=== PATIENT | female | born 1935 | race American Indian/Alaskan Native ===

== ENCOUNTER 2021-08-30 03:40 | Observation (INO) | payer MEDICARE ==
--- NOTE | 2021-08-30 05:52 | Emergency Department Report ---
ED Shortness of Breath HPI - General Chief Complaint: Dyspnea/Respdistress Stated Complaint: CHEST PAIN, SOB Time Seen by Provider: 08/30/21 05:43 Source: EMS Mode of arrival: Stretcher Limitations: No Limitations - History of Present Illness Initial Comments: 86-year-old female with a history of irregular heartbeat status post pacemaker brought in by EMS with chest pain that started last night progressively getting worse. Patient was given 324 baby aspirin and albuterol breathing treatment with complete resolution of pain. Patient described the pain as pressure in the middle of her chest. No fever or chills reported. No cough or palpitation n oted. Patient denies any other modifying or associated factors. - Related Data Allergies Allergy/AdvReac Type Severity Reaction Status Date / Time No Known Allergies Allergy Verified 08/30/21 04:58 ED Review of Systems ROS: Stated complaint: CHEST PAIN, SOB Other details as noted in HPI Comment: All other systems reviewed and negative Cardiovascular: chest pain. denies: palpitations, dyspnea on exertion ED Past Medical Hx - Surgical History Hx Pacemaker: Yes (Ventricular Paced) ED Physical Exam - General Limitations: No Limitations General appearance: alert, in no apparent distress - Head Head exam: Present: normal inspection - Eye Eye exam: Present: normal appearance Pupils: Present: normal accommodation - ENT ENT exam: Present: normal exam, normal orophraynx, mucous membranes moist - Neck Neck exam: Present: normal inspection. Absent: tenderness, meningismus - Respiratory Respiratory exam: Present: normal lung sounds bilaterally. Absent: respiratory distress, accessory muscle use - Cardiovascular Cardiovascular Exam: Present: regular rate, normal rhythm, normal heart sounds - GI/Abdominal GI/Abdominal exam: Present: soft, normal bowel sounds. Absent: distended, tenderness - Extremities Exam Extremities exam: Present: normal inspection, normal capillary refill. Absent: tenderness - Back Exam Back exam: Absent: tenderness - Neurological Exam Neurological exam: Present: alert, oriented X3 - Psychiatric Psychiatric exam: Present: normal affect, normal mood ED Course Vital Signs 08/30/21 08/30/21 08/30/21 03:41 06:31 06:45 Temperature 97.1 F L Pulse Rate 89 89 78 Respiratory 18 14 15 Rate Blood Pressure 158/86 158/86 Blood Pressure 148/86 [Right] O2 Sat by Pulse 99 100 100 Oximetry 08/30/21 08/30/21 08/30/21 07:01 07:53 08:01 Temperature Pulse Rate 89 Respiratory 12 Rate Blood Pressure 158/86 150/85 150/85 Blood Pressure [Right] O2 Sat by Pulse 100 99 100 Oximetry 08/30/21 08/30/21 08/30/21 08:15 08:17 08:31 Temperature Pulse Rate Respiratory Rate Blood Pressure 150/85 150/85 Blood Pressure [Right] O2 Sat by Pulse 100 96 100 Oximetry 08/30/21 08/30/21 08/30/21 08:55 08:59 09:01 Temperature Pulse Rate Respiratory Rate Blood Pressure 150/85 150/85 Blood Pressure [Right] O2 Sat by Pulse 83 L 96 100 Oximetry 08/30/21 08/30/21 09:21 09:31 Temperature Pulse Rate Respiratory Rate Blood Pressure 150/85 150/85 Blood Pressure [Right] O2 Sat by Pulse 97 100 Oximetry - Reevaluation(s) Reevaluation #1: 08/30/21 05:48 Here with chest pain and shortness of breath with history of cardiac arrhythmia s/p pacemaker--chest pain is relieved by 224 mg of baby aspirin, and albuterol breathing treatments--with this patient comorbidity there is concern for cardiac--so we will go ahead and rule out WA with initial troponin, EKG, BNP, and routine CBC, CMP and UA for infectious process or electrolyte abnormality. Initial EKG shows AV dual paced rhythm with some he patient heart rate of 75 bpm. 08/30/21 05:50 Reevaluation #2: 08/30/21 05:[address] Sharp at shift change while waiting for the above workup including initial troponin 08/30/21 05:52 ED Medical Decision Making - Lab Data Result diagrams: 08/30/21 05:55 08/30/21 05:55 Critical care attestation.: If time is entered above; I have spent that time in minutes in the direct care of this critically ill patient, excluding procedure time. ED Disposition Clinical Impression: Chest pain Qualifiers: Chest pain type: unspecified Qualified Code(s): R07.9 - Chest pain, unspecified Disposition: 09 ADMITTED INPATIENT Is pt being admited?: Yes Does the pt Need Aspirin: No Condition: Stable
[2021-08-30 06:08] LABS: Basophils % (Auto) 0.4 % (0.0-1.8); Eosinophils % (Auto) 0.6 % (0.0-4.3); Hematocrit 34.2 % (30.3-42.9); Hemoglobin 11.5 gm/dl (10.1-14.3); Lymphocytes # (Auto) 0.9 K/mm3 (1.2-5.4); Lymphocytes % (Auto) 18.9 % (13.4-35.0); Mean Corpuscular HGB Conc 34 % (30-34); Mean Corpuscular Volume 93 fl (79-97); Monocytes # (Auto) 0.4 K/mm3 (0.0-0.8); Monocytes % (Auto) 9.2 % (0.0-7.3); Platelet Count 210 K/mm3 (140-440); Red Blood Count 3.68 M/mm3 (3.65-5.03); Red Cell Distribution Width 14.4 % (13.2-15.2)
--- NOTE | 2021-08-30 06:11 | XRay Report ---
CHEST 1 VIEW 08/30/2021 5:04 AM INDICATION / CLINICAL INFORMATION: chest pain. COMPARISON: None available. FINDINGS: SUPPORT DEVICES: Left chest wall dual lead cardiac pacemaker HEART / MEDIASTINUM: Cardiomegaly LUNGS / PLEURA: Pulmonary vascular indistinctness No pneumothorax. ADDITIONAL FINDINGS: No significant additional findings. IMPRESSION: 1. Cardiomegaly with pulmonary edema. Signer Name: Amandeep Vivar DO Signed: 08/30/2021 6:07 AM Workstation Name: [id number]
[2021-08-30 06:18] LABS: INR 1.02 (0.87-1.13); Partial Thromboplastin Time 31.5 Sec. (24.2-36.6)
[2021-08-30 06:21] LABS: Alanine Aminotransferase 90 units/L (7-56); Albumin 3.9 g/dL (3.9-5); BUN/Creatinine Ratio 17; Blood Urea Nitrogen 19 mg/dL (7-17); Hemolysis Index 6
[2021-08-30] MEDS ORDERED: ASPIRIN 81 MG TAB CHEW PO ONE (07:37)
[2021-08-30] MEDS ORDERED: NITROGLYCERIN 0.4 MG TAB SUBL SL ONE (07:37)
--- NOTE | 2021-08-30 07:40 | Event Note ---
Date: 08/30/21 (Addendum) Patient care transferred to nd from Dr. Nascimento @ 6:00 am. Patient here with complaints of CP and SOB. ED Medical Decision Making - Lab Data Result diagrams: 08/30/21 05:55 08/30/21 05:55 Laboratory Tests 08/30/21 08/30/21 08/30/21 05:55 05:55 05:55 WBC 4.6 RBC 3.68 Hgb 11.5 Hct 34.2 MCV 93 MCH 31 MCHC 34 RDW 14.4 Plt Count 210 Lymph % (Auto) 18.9 [place] % (Auto) 9.2 H Eos % (Auto) 0.6 Baso % (Auto) 0.4 Lymph # (Auto) 0.9 L [place] # (Auto) 0.4 Eos # (Auto) 0.0 Baso # (Auto) 0.0 Seg Neutrophils % 70.9 H Seg Neutrophils # 3.3 PT INR APTT Sodium 138 Potassium 4.4 Chloride 103.3 Carbon Dioxide 24 Anion Gap 15 BUN 19 H Creatinine 1.1 Estimated GFR 57 BUN/Creatinine Ratio 17 Glucose 113 H Calcium 9.0 Total Bilirubin 0.70 AST 180 H ALT 90 H Alkaline Phosphatase 108 Troponin T < 0.010 NT-Pro-B Natriuret Pep Total Protein 6.7 Albumin 3.9 Albumin/Globulin Ratio 1.4 TSH 0.474 08/30/21 08/30/21 05:55 05:55 WBC RBC Hgb Hct MCV MCH MCHC RDW Plt Count Lymph % (Auto) [place] % (Auto) Eos % (Auto) Baso % (Auto) Lymph # (Auto) [place] # (Auto) Eos # (Auto) Baso # (Auto) Seg Neutrophils % Seg Neutrophils # PT 14.5 INR 1.02 APTT 31.5 Sodium Potassium Chloride Carbon Dioxide Anion Gap BUN Creatinine Estimated GFR BUN/Creatinine Ratio Glucose Calcium Total Bilirubin AST ALT Alkaline Phosphatase Troponin T NT-Pro-B Natriuret Pep 5490 H Total Protein Albumin Albumin/Globulin Ratio TSH CXR: cardiomegaly with bilateral infiltrates EKG: HR 72, A-V paced, no significant St changes in contiguous leads by Sgarbossa criteria - Medical Decision Making Diff dz: likely 2/2 CHF exacerbation. Need to r/o ACS. Pneumothorax ruled out. PE, pneumonia less likely. IMPRESSION: 1. CHF exacerbation 2. Chest pain ED Disposition Disposition: 09 ADMITTED INPATIENT Is pt being admited?: Yes Does the pt Need Aspirin: No Condition: Stable Time of Disposition: 07:43 (Patient admitted tyo Dr. Centeno. Sign out was given by me to Dr. Starr (covering for Dr. Centeno))
[2021-08-30] MEDS: FUROSEMIDE 40 MG/4 ML INJ IV ONE ×2 (07:56→09:00)
[2021-08-30] MEDS ORDERED: NALOXONE 0.4 MG/1 ML INJ IV PRN (08:00)
[2021-08-30] MEDS ORDERED: MORPHINE 2 MG/1 ML INJ IV PRN (08:00)
[2021-08-30] MEDS ORDERED: ACETAMINOPHEN 325 MG TAB PO PRN (08:00)
[2021-08-30] MEDS ORDERED: ALBUTEROL 2.5 MG/3 ML NEBU IH PRN (08:00)
[2021-08-30] MEDS ORDERED: ONDANSETRON 4 MG/2 ML INJ IV PRN (08:00)
[2021-08-30] MEDS ORDERED: NITROGLYCERIN 0.4 MG TAB SUBL SL PRN (08:00)
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
[2021-08-30] MEDS ORDERED: FAMOTIDINE 20 MG TAB PO SCH (10:00)
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
[2021-08-30] MEDS: HEPARIN 5,000 UNIT/1 ML VIAL SUB-Q SCH ×3 (13:48→21:52)
[2021-08-30] MEDS: METOPROLOL SUCCINATE XL 25 MG TAB PO SCH (13:48)
[2021-08-30] MEDS: FAMOTIDINE 10 MG TAB PO SCH ×2 (13:55→21:52)
[2021-08-30] MEDS: LISINOPRIL 5 MG TAB PO SCH (13:56)
[2021-08-30 14:58] LABS: Creatine Kinase MB 4.6 ng/mL (0.0-4.0)
[2021-08-30 16:02] LABS: Bilirubin,Urine NEG (Negative); Blood,Urine SM (Negative); Color,Urine Colorless (Yellow); Protein,Urine <15 mg/dL mg/dL (Negative); RBC,Urine < 1.0 /HPF (0.0-6.0); Urobilinogen,Urine < 2.0 mg/dL (<2.0); WBC,Urine < 1.0 /HPF (0.0-6.0)
[2021-08-30] MEDS: FUROSEMIDE 20 MG/2 ML INJ IV SCH (18:38)
[2021-08-30 19:42] LABS: Creatine Kinase MB 4.4 ng/mL (0.0-4.0)
[2021-08-30] MEDS: DOCUSATE SODIUM 100 MG CAP PO PRN (21:52)
[2021-08-31 04:58] LABS: Hemoglobin 11.3 gm/dl (10.1-14.3); Mean Corpuscular HGB Conc 34 % (30-34); Mean Corpuscular Volume 91 fl (79-97); Platelet Count 215 K/mm3 (140-440); Red Blood Count 3.63 M/mm3 (3.65-5.03); Red Cell Distribution Width 14.4 % (13.2-15.2)
[2021-08-31 05:27] LABS: Albumin 3.8 g/dL (3.9-5); Calcium 8.7 mg/dL (8.4-10.2); Chol/HDL Ratio 2.61 %
[2021-08-31] MEDS: HEPARIN 5,000 UNIT/1 ML VIAL SUB-Q SCH (05:41)
[2021-08-31] MEDS: FUROSEMIDE 20 MG/2 ML INJ IV SCH (05:41)
[2021-08-31 08:40] VITALS: BP 129/79
[2021-08-31] MEDS ORDERED: POTASSIUM CHLORIDE ER 20 MEQ TAB PO SCH (10:00)
[2021-08-31] MEDS ORDERED: ASPIRIN 325 MG TAB PO SCH (10:00)
--- NOTE | 2021-08-31 11:03 | Discharge Summary ---
Providers - Providers Date of Admission: 08/30/21 07:52 Attending physician: ALEXANDRIA GUTIERREZ MD 08/30/21 07:53 Consult to Dietitian/Nutrition [CONS] Routine Physician Instructions: Reason For Exam: Reason for Consult: Diet education 08/30/21 08:15 Consult to Physician [CONS] Routine Comment: Consulting Provider: AVA MURILLO Physician Instructions: Reason For Exam: CHF Primary care physician: CRYPTOLOGIC TECHNICIAN OPERATOR/ANALYST Hospitalization Reason for admission: Shortness of breath Condition: Stable Hospital course: Patient is an 86-year-old female with past medical history of hypotension, postural dizziness, question recent diagnosis of irregular heartbeat status post pacemaker a few weeks ago was presented to the ED for complaint of shortness of breath and chest pain that started the night prior to admission and worsening. She was given 324 mg of aspirin in the ED with complete resolution of the pain and also albuterol for her breathing. She denies history of tobacco use alcohol reports that she does have compliance with all her medications. She has been tried on multiple medications and of recent was taken off amlodipine and lisinopril at some point it appears that she was on fludrocortisone and also on colchicine for unknown reasons at this time. She denies any history of gout. At the time of my examination she says her symptoms are improving although she reports that she had not received the Lasix that was ordered. Chest x-ray in the ED showed her congestive heart failure with pulmonary edema. Chest x-ray in the ED shows pulmonary edema EKG shows AV dual paced rhythm Echocardiogram 06/17/2021- Left ventricular ejection fraction is 45%.2. The estimated right ventricular systolic pressure is normal at 26.0 mmHg.3. Aortic valve is sclerotic, focally calcified and tricuspid.4. Small pericardial effusion.5. Mild-moderate tricuspid regurgitation.6. Mild aortic valve insuffi ciency.7. Mildly increased left ventricular wall thickness.8. Mild pulmonic valve insufficiency.9. Mild mitral valve regurgitation. Lexiscan MPI stress test 06/09/2021- probably normal SPECT myocardial perfusion images. There are no wall motion abnormalities. LV wall thickness is normal. LV function is calculated at 46%, however, visually is 50 to 55%. Stress/ECG changes are nondiagnostic. The changes are nondiagnostic due to ventricular pacing or LBBB. Hypotensive BP response with stress. Normal HR response with stress. Nonanginal chest pain reported. This study suggests a low risk for cardiovascular event and is associated with a cardiac mortality of less than 1% per year. There is a small sized, moderate intensity apical anterior defect that is worse at rest than at stress, consistent with attenuation artifact. No evidence of ischemia or infarction Patient was admitted and seen by cardiology who had good access to her records documented patient does have acute systolic heart failure EF done on 06/17/2021 showed an EF of 45%. Recommendation was made for low-dose Lasix at 20 mg daily and to continue aspirin lisinopril and metoprolol. Patient will follow with the primary signal helper I also discussed with her daughter who was at bedside she verbalized understanding. Acute systolic heart failure SSS s/p PPM Hypertension Hyperlipidemia CKD Atypical chest pain likely secondary to congestive heart failure Pulmonary edema possible underlining systolic congestive heart failure with acute exacerbation question new diagnosis Morbid obesity BMI 27.1 Hypotension by history History of postural dizziness Passive hepatic congestion Disposition: HOME / SELF CARE / HOMELESS Final Discharge Diagnosis (Prints w/discharge instructions): Acute systolic heart failure. SSS s/p PPM. Hypertension. Hyperlipidemia. CKD. Atypical chest pain likely secondary to congestive heart failure. Pulmonary edema possible underlining systolic congestive heart failure with acute exacerbation question new diagnosis. Morbid obesity BMI 27.1. Hypotension by history. History of postural dizziness Time spent for discharge: 35 minutes Core Measure Documentation - Palliative Care Palliative Care/ Comfort Measures: Not Applicable - Core Measures Any of the following diagnoses?: none Exam - Physical Exam Narrative exam: VITAL SIGNS: Reviewed. GENERAL: The patient appears normally developed, Vital signs as documented. HEAD: No signs of head trauma. EYES: Pupils are equal. Extraocular motions intact. EARS: Hearing grossly intact. MOUTH: Oropharynx is normal. NECK: No adenopathy, no JVD. CHEST: Chest with fine rales breath sounds bilaterally at the bases. No wheezes. CARDIAC: Regular rate and rhythm. S1 and S2, without murmurs, gallops, or rubs. VASCULAR: No edema. Peripheral pulses normal and equal in all extremities. ABDOMEN: Soft, non tender and non distended. No rebound or guarding, and no masses palpated. Bowel Sounds normal. MUSCULOSKELETAL: Good range of motion of all major joints. Extremities without clubbing, cyanosis no edema. NEUROLOGIC EXAM: Alert and oriented x 3 No focal sensory or strength deficits. Speech normal. Follows commands. PSYCHIATRIC: Mood normal. SKIN: detail exam as documented in skin assessment - Constitutional Vitals: Temp Pulse Resp BP Pulse Ox 98.0 F 85 16 129/79 96 08/31/21 08:39 08/31/21 08:39 08/31/21 08:39 08/31/21 08:39 08/31/21 08:39 Plan Activity: advance as tolerated, fall precautions Diet: low salt Special Instructions: restrict fluid intake to (1500cc/day), record daily weights, record daily BP diary Follow up with: [facility] [Provider Group] - 7 Days AVA MURILLO MD [Staff Physician] - 7 Days Prescriptions: Aspirin [Adult Aspirin] 81 mg PO DAILY #30 tab Furosemide [Lasix TAB] 20 mg PO QDAY #30 tablet Metoprolol Xl [Metoprolol SUCCINATE ER TAB] 25 mg PO QDAY #30 tablet Famotidine [Pepcid] 10 mg PO DAILY #30 tablet lisinopriL [Zestril TAB] 2.5 mg PO QDAY #30 tablet
--- NOTE | 2021-08-31 11:16 | Progress Note ---
Assessment and Plan Patient is an 86-year-old female with a past medical history of CKD, hypertension, sick sinus syndrome s/p PPM who presents to the ED with a complaint of difficulty in breathing which started Sunday night Acute systolic heart failure SSS s/p PPM Hypertension Hyperlipidemia CKD Echocardiogram 06/17/2021- Left ventricular ejection fraction is 45%.2. The estimated right ventricular systolic pressure is normal at 26.0 mmHg.3. Aortic valve is sclerotic, focally calcified and tricuspid.4. Small pericardial effusion.5. Mild-moderate tricuspid regurgitation.6. Mild aortic valve insufficiency.7. Mildly increased left ventricular wall thickness.8. Mild pulmonic valve insufficiency.9. Mild mitral valve regurgitation. Lexiscan MPI stress test 06/09/2021- probably normal SPECT myocardial perfusion images. There are no wall motion abnormalities. LV wall thickness is normal. LV function is calculated at 46%, however, visually is 50 to 55%. Stress/ECG changes are nondiagnostic. The changes are nondiagnostic due to ventricular pacing or LBBB. Hypotensive BP response with stress. Normal HR response with stress. Nonanginal chest pain reported. This study suggests a low risk for cardiovascular event and is associated with a cardiac mortality of less than 1% per year. There is a small sized, moderate intensity apical anterior defect that is worse at rest than at stress, consistent with attenuation artifact. No evidence of ischemia or infarction. Plan: EKG shows paced rhythm 75 no acute ischemic changes. Patient currently chest pain-free. Troponins negative x 2. AMI ruled Patient appears euvolemic on exam Lasix IV and convert to Lasix 20 mg p.o. daily Patient currently on aspirin, lisinopril 2.5 mg p.o. daily, and metoprolol 25 mg p.o. daily Statin on hold due to elevated liver enzyme Cardiac status otherwise stable Patient is to follow-up appoint with Dr. Martinez, [facility] specialists, on 09/07/2021 at 9:15 AM in our [place] location. Phone #[phone] Patient seen in conjunction with Dr. Ball who agrees with this plan of care - Patient Problems (1) Acute systolic heart failure Current Visit: Yes Status: Acute (2) Hypertension Current Visit: Yes Status: Acute (3) Cardiac pacemaker in situ Current Visit: Yes Status: Acute (4) CKD (chronic kidney disease) Current Visit: Yes Status: Acute Subjective Date of service: 08/31/21 Principal diagnosis: Acute on chronic HFrEF Interval history: Patient resting in bed in no acute distress Paced 90s Objective Vital Signs Temp Pulse Resp BP BP Pulse Ox 08/31/21 08:39 98.0 F 85 16 129/79 96 08/31/21 03:47 98.5 F 85 18 134/77 95 08/31/21 00:00 83 08/30/21 22:59 97.8 F 83 18 129/78 98 08/30/21 21:05 97 08/30/21 20:59 96 08/30/21 20:00 98.2 F 85 18 136/78 99 08/30/21 19:59 98.0 F 83 18 132/78 100 08/30/21 16:59 86 08/30/21 15:08 98.6 F 87 16 143/94 98 08/30/21 13:48 77 150/83 - Physical Examination General: No Apparent Distress HEENT: Positive: PERRL, Normocephaly Cardiac: Positive: Reg Rate and Rhythm Lungs: Positive: Normal Breath Sounds Neuro: Positive: Grossly Intact Abdomen: Positive: Soft, Active Bowel Sounds Skin: Negative: Rash, Suspicious Lesions, Ulceration Extremities: Present: upper extr. pulses, edema (Slight edema left leg) - Labs and Meds Cardiac Enzymes 08/30/21 08/30/21 08/31/21 Range/Units 13:39 18:03 03:43 AST 52 H (5-40) units/L CK-MB (CK-2) 4.6 H 4.4 H (0.0-4.0) ng/mL Lipids 08/31/21 Range/Units 03:43 Triglycerides 49 (2-149) mg/dL Cholesterol 183 (50-199) mg/dL HDL Cholesterol 70 H (40-59) mg/dL Cholesterol/HDL Ratio 2.61 % CBC 08/31/21 Range/Units 03:43 WBC 3.3 L (4.5-11.0) K/mm3 RBC 3.63 L (3.65-5.03) M/mm3 Hgb 11.3 (10.1-14.3) gm/dl Hct 33.0 (30.3-42.9) % Plt Count 215 (140-440) K/mm3 Comprehensive Metabolic Panel 08/31/21 Range/Units 03:43 Sodium 140 (137-145) mmol/L Potassium 3.5 L D (3.6-5.0) mmol/L Chloride 102.0 (98-107) mmol/L Carbon Dioxide 26 (22-30) mmol/L BUN 19 H (7-17) mg/dL Creatinine 1.1 (0.6-1.2) mg/dL Glucose 83 (65-100) mg/dL Calcium 8.7 (8.4-10.2) mg/dL AST 52 H (5-40) units/L ALT 58 H (7-56) units/L Alkaline Phosphatase 81 (35-129) units/L Total Protein 5.9 L (6.3-8.2) g/dL Albumin 3.8 L (3.9-5) g/dL - Imaging and Cardiology Echo: report reviewed - Telemetry EKG Rhythm: Paced Pacemaker: normal AV synchronous pac
[2021-08-31] MEDS: FAMOTIDINE 10 MG TAB PO SCH (11:36)
[2021-08-31] MEDS: METOPROLOL SUCCINATE XL 25 MG TAB PO SCH (11:37)
[2021-08-31] MEDS: LISINOPRIL 5 MG TAB PO SCH (11:37)
[2021-08-31] MEDS: DOCUSATE SODIUM 100 MG CAP PO PRN (11:40)
[2021-09-01] MEDS ORDERED: FUROSEMIDE 20 MG TAB PO SCH (10:00)
--- NOTE | 2021-09-06 17:50 | Electrocardiograph Report ---
[facility] Test Date: 2021-08-30 Test Time: 03:52:09 Pat Name: MATT MURILLO Department: Room: A464 Gender: F Steam Presser: SANDY : 1935 Requested By: MANUEL SHAFER Order Number: [id number] Reading MD: Ernesto Spivey Measurements Intervals [place] Rate: 75 P: 26 CT: 242 QRS: -64 QRSD: 164 T: 123 QT: 447 QTc: 499 Interpretive Statements A-V dual-paced rhythm with some inhibition No previous ECG available for comparison Electronically Signed On 09-06-2021 17:49:45 EDT by Ernesto Spivey
== END 2021-08-31 15:30 | disposition home or self-care (01) ==
LOC: ED 03:40 → 4A 07:52 → INTOOBSV 07:52
PROVIDERS: ADMIT Internal Medicine; ATTEND Internal Medicine
DX: R07.89 Other chest pain (principal); I13.0 Hypertensive heart and chronic kidney disease with heart failure and stage 1 through stage 4 chronic kidney disease, or unspecified chronic kidney disease; I50.21 Acute systolic (congestive) heart failure; N18.9 Chronic kidney disease, unspecified; J81.1 Chronic pulmonary edema; I95.9 Hypotension, unspecified; E66.01 Morbid (severe) obesity due to excess calories; E78.5 Hyperlipidemia, unspecified; I49.5 Sick sinus syndrome; R42 Dizziness and giddiness; R74.01 Elevation of levels of liver transaminase levels; Z68.42 Body mass index [BMI] 45.0-49.9, adult; Z79.899 Other long term (current) drug therapy; Z98.890 Other specified postprocedural states; Z79.82 Long term (current) use of aspirin; Z95.0 Presence of cardiac pacemaker
CPT/HCPCS: 36415; 71045; 80053; 80061; 81001; 82550; 82553; 83880; 84443; 84484; 85025; 85027; 85610; 85730; 93005; 96372; 96374; 96376; 99285; G0378; J1644; J1940